=== PATIENT | male | born 1980 | race Caucasian/White ===

== ENCOUNTER 2016-07-31 16:06 | Emergency (ER) | payer OTHER ==
[2016-07-31] MEDS ORDERED: ACETAMINOPHEN TAB 500 MG TAB PO STA (16:27)
[2016-07-31] MEDS ORDERED: ONDANSETRON ODT 4 MG TAB PO STA (16:27)
[2016-07-31] MEDS ORDERED: IBUPROFEN 600 MG TAB PO STA (16:27)
--- NOTE | 2016-07-31 16:44 | ED ---
General Adult HPI - General Chief complaint: Headache Stated complaint: Headache, chills Time Seen by Provider: 07/31/16 16:19 Source: patient, RN notes reviewed Mode of arrival: ambulatory Limitations: no limitations - History of Present Illness Initial comments: 35-year-old male presents emergency Department chief complaint fever, body aches , headache, sore throat. Patient states started symptoms yesterday and progressed into today. He did take Cipro yesterday but nothing today. Patient states that it does hurt to swallow every time. He has no difficulty swallowing. Patient denies any neck pain or neck stiffness. He states he has a diffuse headache. Patient going to chills, feeling hot and cold. Patient denies any abdominal pain but states he has some nausea. States is slightly nose no productive cough. No sick contacts with some her symptoms. - Related Data Previous Rx's Medication Instructions Recorded Amoxicillin 500 mg PO Q8H #30 capsule 07/31/16 Allergies Allergy/AdvReac Type Severity Reaction Status Date / Time No Known Allergies Allergy Verified 07/31/16 16:41 Review of Systems ROS Statement: Those systems with pertinent positive or pertinent negative responses have been documented in the HPI. ROS Other: All systems not noted in ROS Statement are negative. Past Medical History Past Medical History: No Reported History History of Any Multi-Drug Resistant Organisms: None Reported Past Surgical History: No Surgical Hx Reported Past Psychological History: No Psychological Hx Reported Smoking Status: Current every day smoker Past Alcohol Use History: None Reported Past Drug Use History: None Reported General Exam Limitations: no limitations General appearance: alert, in no apparent distress Head exam: Present: atraumatic, normocephalic, normal inspection Eye exam: Present: normal appearance, PERRL, EOMI. Absent: scleral icterus, conjunctival injection, periorbital swelling ENT exam: Present: mucous membranes moist, TM's normal bilaterally, normal external ear exam. Absent: normal oropharynx (Erythema posterior pharynx) Neck exam: Present: normal inspection, full ROM. Absent: tenderness, meningismus, lymphadenopathy Respiratory exam: Present: normal lung sounds bilaterally. Absent: respiratory distress, wheezes, rales, rhonchi, stridor Cardiovascular Exam: Present: normal rhythm, tachycardia, normal heart sounds. Absent: systolic murmur, diastolic murmur, rubs, gallop, clicks GI/Abdominal exam: Present: soft, normal bowel sounds. Absent: distended, tenderness, guarding, rebound, rigid Neurological exam: Present: alert, oriented X3, CN II-XII intact Skin exam: Present: warm, dry, intact, normal color. Absent: rash Course Vital Signs 07/31/16 07/31/16 07/31/16 16:12 16:22 17:14 Temperature 99.7 F H 101.5 F H 99.9 F H Pulse Rate 101 H 99 Respiratory 18 20 Rate Blood Pressure 126/63 117/61 O2 Sat by Pulse 98 96 Oximetry Medical Decision Making - Medical Decision Making 35-year-old male present emergency department for fever, sore throat. Patient has strep. Patient to with amoxicillin and discharge. - Lab Data Lab Results 07/31/16 07/31/16 07/31/16 Range/Units 16:40 16:43 16:43 Heterophile Antibody Negative (Negative) Influenza Type A RNA Not Detected (Not Detectd) Influenza Type B (PCR) Not Detected (Not Detectd) Group A Strep Rapid Positive A (Negative) Disposition Clinical Impression: Streptococcal pharyngitis Disposition: HOME SELF-CARE Condition: Stable Instructions: Strep Throat (ED) Additional Instructions: Please return to the Emergency Department if symptoms worsen or any other concerns. Prescriptions: Amoxicillin 500 mg PO Q8H #30 capsule Time of Disposition: 17:24
[2016-07-31 17:31] VITALS: BP 106/63; PULSE 95; RESP 18; TEMP 99
== END 2016-07-31 17:36 | disposition home or self-care (01) ==
LOC: EC 16:06
DX: J02.0 Streptococcal pharyngitis (principal); R51 Headache; F17.200 Nicotine dependence, unspecified, uncomplicated
CPT/HCPCS: 36415; 86308; 87430; 87502; 99284